=== PATIENT | female | born 1960 | race Asian ===

== ENCOUNTER 2017-01-20 12:36 | Inpatient (IN) | payer MEDICARE, MEDICAID ==
[~2017-01-20] VITALS: Ht 157.5 cm; Wt 66.8 kg
[2017-01-20 13:49] LABS: BASOPHILS % (AUTO) 0.4 % (0.0-2.0); EOSINOPHILS % (AUTO) 0.1 % (1.0-6.0); HEMATOCRIT 41.7 % (36-46); HEMOGLOBIN 13.8 g/dL (12.0-16.0); LYMPHOCYTES # (AUTO) 3.3 K/uL (1.0-4.8); LYMPHOCYTES % (AUTO) 53.2 % (22.0-44.0); MEAN CORPUSCULAR VOLUME 94 fL (80-100); MONOCYTES # (AUTO) 0.5 K/uL (0.1-1.0); MONOCYTES % (AUTO) 8.4 % (2.0-9.0); NEUTROPHILS # (AUTO) 2.4 K/uL (1.8-7.7); NEUTROPHILS % (AUTO) 37.9 % (40.0-70.0); PLATELET COUNT (AUTO) 146 K/uL (150-450); RED BLOOD CELL COUNT(AUTO) 4.44 MIL/uL (4.00-5.20); RED CELL DISTRIBUTION WIDTH 11.6 % (11.5-14.5); WHITE BLOOD COUNT (AUTO) 6.3 K/uL (4.5-11.0)
[2017-01-20 13:59] LABS: ANION GAP 12 mmol/L (8-16); CALCIUM, TOTAL 9.7 mg/dL (8.8-10.5); CARBON DIOXIDE 26 mmol/L (22-29); CHLORIDE 89 mmol/L (98-107); GLOMERULAR FILTR. RATE CALC > 60 mL/min (>60); POTASSIUM 3.5 mmol/L (3.5-5.1); SODIUM SERUM 127 mmol/L (136-145); UREA NITROGEN, BLOOD 11 mg/dL (7-18)
[2017-01-20] MEDS ORDERED: OXCA300T PO (14:00)
[2017-01-20] MEDS ORDERED: SUMA25TA9 PO (14:00)
[2017-01-20] MEDS ORDERED: TRIA1CAP2 PO (14:00)
[2017-01-20] MEDS ORDERED: ATEN50TA PO (14:00)
[2017-01-20] MEDS ORDERED: OLAN2.5T3 PO (14:00)
[2017-01-20] MEDS ORDERED: HYD25 PO (14:00)
[2017-01-20 14:04] LABS: ALANINE AMINOTRANSFERASE 24 U/L (12-78); ALBUMIN 5.1 g/dL (3.4-5.0); ASPARTATE AMINOTRANSFERASE 17 U/L (15-37); BILIRUBIN,TOTAL 0.5 mg/dL (0.1-1.0); TOTAL PROTEIN, SERUM 8.8 g/dL (6.4-8.2)
[2017-01-20] MEDS ORDERED: SODIUM CHLORIDE 0.9% 1,000 ML IV ONE (15:30)
[2017-01-20 19:59] VITALS: BP 128/76
[2017-01-20] MEDS ORDERED: PNEUMOCOCCAL VACCINE POLYVALENT 0.5 ML VIAL [PPSV23] IM ONE (20:45)
[2017-01-20] MEDS ORDERED: SUMAtriptan SUCCINATE 25 MG TABLET PO PRN (21:00)
[2017-01-21 06:02] VITALS: BP 107/72
[2017-01-21 08:40] VITALS: BP 114/68
[2017-01-21 08:40] LABS: CHOL/HDL RATIO 3.9 (3.9-5.7); MAGNESIUM 1.7 mg/dL (1.80-2.40); THYROID STIMULATING HORMONE 3.44 uIU/mL (0.36-3.74)
[2017-01-21] MEDS ORDERED: ATENOLOL 25 MG TABLET PO SCH (09:00)
[2017-01-21] MEDS ORDERED: BISACODYL 5 MG EC TABLET PO PRN (10:45)
[2017-01-21] MEDS ORDERED: BISACODYL 10 MG RECTAL RECTAL SUPPOSITORY PR PRN (10:45)
[2017-01-21] MEDS ORDERED: LACTULOSE 20 GM/30 ML SOLUTION UDCUP PO PRN (10:45)
[2017-01-21] MEDS: DOCUSATE SODIUM 250 MG CAPSULE PO SCH ×2 (10:54→17:31)
[2017-01-21 16:31] VITALS: BP 115/65
== END 2017-01-21 18:50 | disposition home or self-care (01) | DRG 885 ==
LOC: EMS 12:40 → B2S 17:29 → UNDOADMIN 17:29 → EMS 18:46 → B2S 20:37
PROC: 3E0234Z Introduction of Serum, Toxoid and Vaccine into Muscle, Percutaneous Approach (ICD-10-PCS; principal; 2017-01-21)
DX: F31.4 Bipolar disorder, current episode depressed, severe, without psychotic features (principal); E87.1 Hypo-osmolality and hyponatremia; I10 Essential (primary) hypertension; E83.42 Hypomagnesemia; E55.9 Vitamin D deficiency, unspecified; G43.909 Migraine, unspecified, not intractable, without status migrainosus; R56.9 Unspecified convulsions; F17.200 Nicotine dependence, unspecified, uncomplicated; K59.00 Constipation, unspecified; T50.2X5A Adverse effect of carbonic-anhydrase inhibitors, benzothiadiazides and other diuretics, initial encounter; X58.XXXA Exposure to other specified factors, initial encounter; Y93.89 Activity, other specified; Y92.89 Other specified places as the place of occurrence of the external cause; Y99.8 Other external cause status; Z23 Encounter for immunization; Z88.6 Allergy status to analgesic agent; Z88.2 Allergy status to sulfonamides; Z88.8 Allergy status to other drugs, medicaments and biological substances; Z79.899 Other long term (current) drug therapy
CPT/HCPCS: 82306; 82607; 82746; 83036; 83735; 84439; 84443; 90471; 96360; 99285; G0480; J7030